=== PATIENT | male | born 1945 | race Caucasian/White ===

== ENCOUNTER 2018-07-23 12:35 | Day surgery (SDC) | payer MEDICARE, OTHER ==
[~2018-07-23] VITALS: Ht 177.8 cm; Wt 113.6 kg
[2018-07-23] VITALS (135 sets, daily range): BP systolic 126–160; BP diastolic 83–97; PULSE 51–67; TEMP 97.7–98.5; O2SAT 93–98
[~2018-07-23 12:35] MED LIST: ASPI325T6 PO; ASPIRIN 32325 MG/TAB PO; ASPIRIN 81M81 MG/TA2 PO; CELEBREX 200MG200 MG PO; COSAMIN DS 4001 TAB PO; CRESTOR20 MG PO; DIOVAN/HCT 12.51 TAB PO; GARLIC1250 MG PO; HCTZ12.5TAB PO; LIPITOR 10MG10 MG PO; NIASPAN 500MG500 MG PO; NORVASC 10MG10 MG PO; PEPCID 20MG TAB20 MG PO; PLAVIX 75MG TAB75 MG PO; ROXICODONE 55 MG/TAB PO; SUPER EPA 2002000 MG PO; TOPROL XL 25MG25 MG PO; TRICOR145 MG PO; VIT-GEN1 TAB PO; ZESTRIL 5MG5 MG PO; ZYLOPRIM 300MG300 MG PO
[2018-07-23] MEDS ORDERED: PRINIVIL10 MG PO (12:52)
[2018-07-23] MEDS ORDERED: ASPIRIN E.C. 8181 MG PO (12:53)
[2018-07-23] MEDS ORDERED: COSAMIN DS 4001 TAB PO (12:56)
[2018-07-23] MEDS ORDERED: RANEXA 500MG T500 MG PO (12:56)
[2018-07-23] MEDS ORDERED: EPA FISH OIL1 SGL (12:57)
[2018-07-23 13:15] LABS: HEMATOCRIT 41.8 % (42.0-52.0); HEMOGLOBIN 13.6 g/dl (13.5-18.0); MEAN CELL VOLUME 84 fl (80.0-100.0); MEAN CORPUSCULAR HEMOGLOBIN 27 pg (27.0-31.0); MEAN CORPUSCULAR HGB CONC 33 g/dl (33.0-37.0); MEAN PLATELET VOLUME 10.4 fl (7.4-10.4); PLATELET COUNT 154 K/mm3 (130-400); RED BLOOD COUNT 4.96 M/mm3 (4.20-5.60); REDCELL DISTRIBUTION WIDTH-CV 13.6 % (11.5-14.5)
[2018-07-23 13:21] LABS: INR 1.2 (0.8-3.0); PROTHROMBIN TIME 13.2 SECONDS (9.7-12.8)
[2018-07-23] MEDS ORDERED: TYLENOL 500MG500 MG PO (13:25)
[2018-07-23 13:30] LABS: CALCIUM 9.4 mg/dL (8.4-10.2); CREATININE, serum 1.61 (0.66-1.25); POTASSIUM 3.8 mmol/L (3.4-5.0)
--- NOTE | 2018-07-23 16:59 | NUR ---
ALL MEDICATIONS GIVEN VORB WITH MD. SEE MERGE FOR ALL MEDICATION ADMIN TIMES. SEE MERGE FOR ALL RASS ASSESSMENTS DURING AND POST PROCEDURE.
--- NOTE | 2018-07-23 19:10 | NUR ---
Bedside report provided to VIDA Chung. Patient remains flat with right femoral site with scant drainage noted. Site remains soft and free of hematoma. IV gtt rates verified. Care completed.
--- NOTE | 2018-07-23 20:30 | NUR ---
Cath site dressing noted to be saturated; site is soft and non-tender to touch. Distal pulses +2. Manual pressure held for 10 min. Continued to have mild oozing. Dressing changed and sand bag placed on site.
--- NOTE | 2018-07-23 21:10 | NUR ---
morgue technician at bedside to assess groin site due to bleeding. Tech placed a topical D-stat at that time and re-dressed groin site. Will continue to monitor.
--- NOTE | 2018-07-23 23:20 | NUR ---
Placed femstop at this time. Groin site soft and tender only with deep palpation. Scan drainage on dressing.
[2018-07-24] VITALS (461 sets, daily range): BP systolic 151–168; BP diastolic 85–100; PULSE 55–60; TEMP 98; O2SAT 93–99
--- NOTE | 2018-07-24 01:39 | NUR ---
Patient reported burning sensation at femstop site. Dressing saturated at this time. Groin site still soft with no bruising. Distal pulses plus 2. Removed fem stop to change dressing and assess site. Patient reported burning sensation immediately went away after deflating Femstop. Removed saturated dressing and no new bleeding noted. Placed new dressing and did not replace Femstop at this time. Left Femstop around hips in case site begins to re-bleed.
[2018-07-24 06:06] LABS: BASO % 0.3 % (0.0-2.0); EOS # 0.2 (0.0-0.7); EOS % 1.8 % (0-4.0); GRAN # 6.3 (1.4-6.5); GRAN % 72.5 % (42.2-75.2); HEMATOCRIT 40.6 % (42.0-52.0); LYMPH # 1.5 (1.2-3.4); LYMPH % 17.8 % (20.0-51.0); MEAN CELL VOLUME 84 fl (80.0-100.0); MEAN CORPUSCULAR HEMOGLOBIN 27 pg (27.0-31.0); MEAN CORPUSCULAR HGB CONC 32 g/dl (33.0-37.0); MEAN PLATELET VOLUME 10.7 fl (7.4-10.4); MONO # 0.6 (0.1-0.6); PLATELET COUNT 147 K/mm3 (130-400); RED BLOOD COUNT 4.82 M/mm3 (4.20-5.60); REDCELL DISTRIBUTION WIDTH-CV 13.6 % (11.5-14.5)
[2018-07-24 06:31] LABS: CALCIUM 8.9 mg/dL (8.4-10.2); CREATININE, serum 1.39 (0.66-1.25); POTASSIUM 3.8 mmol/L (3.4-5.0)
--- NOTE | 2018-07-24 07:15 | NUR ---
Bedside report recieved from Juliet MCPHERSON. Right groin dressing and site assessed with off going RN. Dressing CDI, site soft and without hematoma. Patient resting in bed, requests light off. Call light at side
--- NOTE | 2018-07-24 07:15 | NUR ---
Bedside report given to VIDA Menard. Patient care transfered.
--- NOTE | 2018-07-24 12:51 | NUR ---
First visit from the produce department manager. No needs right now.
--- NOTE | 2018-07-24 13:24 | NUR ---
SW met with patient and about discharge planning. Patient lives independently at home with his and plans to return there upon discharge. Patient's PCP is Dr Huddleston and he obtains prescriptions on [facility] [place]. Patient does not use any DME or home health services. Patient does have a DPOA and a copy is in the EMR. SW does not anticipate any discharge needs.
--- NOTE | 2018-07-24 15:00 | NUR ---
Discharge information and education reviewed with patient and spouse. Both state understanding. No new medications or medication changes. Post op appointment made for patient. 1510 Discharged to POV via wheelchair with driving.
== END 2018-07-24 15:10 | disposition home or self-care (01) ==
LOC: COL.CAR 12:35 → ICU 18:37 → COL.CAR 07-24 15:10
PROVIDERS: Internal Medicine Interventional Cardiology
DX: I25.10 Atherosclerotic heart disease of native coronary artery without angina pectoris (principal); R94.39 Abnormal result of other cardiovascular function study; E78.5 Hyperlipidemia, unspecified; E66.9 Obesity, unspecified; I10 Essential (primary) hypertension; Z95.5 Presence of coronary angioplasty implant and graft; Z79.82 Long term (current) use of aspirin; Z79.02 Long term (current) use of antithrombotics/antiplatelets; Z82.49 Family history of ischemic heart disease and other diseases of the circulatory system
CPT/HCPCS: OP; C9600; J0153; J0583; J1644; J2250; J3010; Q9967

== ENCOUNTER 2018-11-10 14:34 | Inpatient (IN) | payer MEDICARE, OTHER ==
[~2018-11-10] VITALS: Ht 177.8 cm; Wt 103.3 kg
[~2018-11-10 14:34] MED LIST changes: +ASPIRIN E.C. 8181 MG PO; +EPA FISH OIL1 SGL; +PRINIVIL10 MG PO; +RANEXA 500MG T500 MG PO; +TYLENOL 500MG500 MG PO
[2018-12-23] VITALS (10 sets, daily range): BP systolic 106–140; BP diastolic 60–81; PULSE 54–77; TEMP 97.6–98.1
--- NOTE | 2018-12-23 09:29 | NUR ---
SW attempted to meet with the patient, the patient was in surgery and there was no family present. SW will attempt at a later time.
--- NOTE | 2018-12-23 14:27 | NUR ---
PT TO ROOM 332 PER BED WITH CASSANDRA DUNBAR RN REPORTING @ 1342. PT IS A/O LUNGS CLEAR, BOWEL SOUNDS PRESENT. DRESSING TO RIGHT HIP CDI. TEDS AND SCDS PLACED BILATERALLY. AT BEDSIDE. PT DENIES PAIN OR MOTOR CONTROL OF LOWER EXRT.
--- NOTE | 2018-12-23 14:30 | NUR ---
PT RESSTING IN BED DENIES PAIN OR NEEDS.
--- NOTE | 2018-12-23 20:30 | NUR ---
mPt. sitting up in bed watching TV at this time. Pt. is A&Ox3, assessment complete. Dressing to rt. hip cdi. Pt. reported pain at a 7 on pain scale, will give pain meds per orders. Pt. denies further needs, call light within reach.
[2018-12-24 00:40] VITALS: BP 134/90; PULSE 88; TEMP 98.6
[2018-12-24 05:08] VITALS: BP 142/80; PULSE 78; TEMP 98.4
[2018-12-24 07:06] LABS: HEMOGLOBIN 11.3 g/dl (13.5-18.0)
[2018-12-24 07:07] LABS: HEMATOCRIT 34.5 % (42.0-52.0)
--- NOTE | 2018-12-24 08:00 | NUR ---
PATIENT IS A&O. VSS. RATES PAIN IN RLE AT 4/10. PATIENT GIVEN PAIN MEDS BEFORE SHIFT CHANGE. RIGHT HIP DRESSING IS CD&I WITH OCCLUSIVE TAPE AND ICE PACK INPLACE. TEDS & SCD'S TO BLE. POSITIVE PEDAL PULSES. PATIENT EAT/DRINK/VOIDING SUFFIENT AMOUNTS. NO C/O N/V. AM MEDS GIVEN. HEAD TO TOE ASSESSMENT COMPLETE.
[2018-12-24 08:53] VITALS: BP 140/70; PULSE 75; TEMP 98.3
--- NOTE | 2018-12-24 11:44 | NUR ---
MOBILE UI DEVELOPER student met with the patient and the patient's , Kalee to discuss a discharge plan. The patient lives in [place] with Kalee. The patient has a walker and reports independence with ADLs. The patient's PCP is Dr. Huddleston and patient receives medications from [facility] with no difficulties. The patient has advanced directives in the EMR. Upon discharge the patient plans to return home with Kalee providing transport. The patient will have outpatient therapy at [facility]. There are no additional needs at this time.
[2018-12-24 12:34] VITALS: BP 129/78; PULSE 70; TEMP 98.6
--- NOTE | 2018-12-24 12:41 | NUR ---
Initial visit; Patient and his thanked Warper Creeler for stopping by to wish patient a rapid and thorough recovery. Both patient and his mentioned the friendliness, helpfulness and professionalism of our hospital staff. Warper Creeler thanked them for letting us know of their positive experience with us.
[2018-12-24 16:23] VITALS: BP 126/61; PULSE 70; TEMP 99.1
[2018-12-24 20:51] VITALS: BP 106/62; PULSE 82; TEMP 98.3
--- NOTE | 2018-12-24 21:00 | NUR ---
Pt. sitting up in bed at this time. Pt. is A&XO3, assessment complete. INT to lt. hand patent. Pt. reports pain at a 3 on pain scale. Dressing to Rt. hip CDI. Devi cath to DD, clear yellow urine noted. Pt. denies further needs at this time. Call light within reach.
[2018-12-25 00:03] VITALS: BP 112/54; PULSE 73; TEMP 98.2
[2018-12-25 03:42] VITALS: BP 115/65; PULSE 73; TEMP 98.7
--- NOTE | 2018-12-25 06:20 | NUR ---
Pt. slept well through the night. Pt. remains A&OX3. Devi catheter discontinued this am. Pt. tolerated well. Pt. denies pain or other needs, call light within reach.
[2018-12-25] MEDS ORDERED: ASPI325T6 PO (06:37)
[2018-12-25] MEDS ORDERED: CELEBREX 200MG200 MG PO (06:38)
[2018-12-25] MEDS ORDERED: NORCO 325 MG-7.1 TAB PO (06:38)
[2018-12-25] MEDS ORDERED: COLACE 100100 MG/CAP PO (06:40)
[2018-12-25] MEDS ORDERED: ULTRAM 50MG TAB50 MG PO (06:40)
[2018-12-25 06:46] LABS: HEMATOCRIT 34.8 % (42.0-52.0)
[2018-12-25 07:56] VITALS: BP 122/62; PULSE 79; TEMP 98.6
--- NOTE | 2018-12-25 08:00 | NUR ---
PATIENT IS ORIENTED BUT A LITTLE TIRED THIS AM. PATIENT REPORTS HE SLEPT BETTER LAST NIGHT. VSS. RATES PAIN IN RLE AT 4/10. PATIENT REQUESTING SOMETHING FOR PAIN BEFORE AM THERAPY. GAVE PRN PAIN MEDS WITH AM MEDS. RTH DRESSING CHANGED TO AQUACEL. TEDS TO BLE. POSITIVE PEDAL PULSES TO BLE. DC'D IV FOR PENDING DISCHARGE. PATIENT PLANNING ON DISCHARGE HOME LATER TODAY.
== END 2018-12-25 11:25 | disposition home or self-care (01) | DRG 470 ==
LOC: JCC 12-23 06:50
PROVIDERS: ADMIT Orthopaedic Surgery
PROC: 0SR90JA Replacement of Right Hip Joint with Synthetic Substitute, Uncemented, Open Approach (ICD-10-PCS; principal; 2018-12-23 09:30)
DX: M16.11 Unilateral primary osteoarthritis, right hip (principal); Z96.642 Presence of left artificial hip joint; I10 Essential (primary) hypertension; M10.9 Gout, unspecified; E78.00 Pure hypercholesterolemia, unspecified; I25.2 Old myocardial infarction
CPT/HCPCS: A4314; A9284; C1713; C1776; J0690; J2250; J2270; J2704; J7120

== ENCOUNTER → 2018-12-18 | Outpatient (CLI) | payer MEDICARE, OTHER | LOC: COL.LAB 10:52 | DX: M16.11 Unilateral primary osteoarthritis, right hip (principal) ==

== ENCOUNTER 2019-02-26 10:24 | Day surgery (SDC) | payer MEDICARE, OTHER ==
[~2019-02-26] VITALS: Ht 177.8 cm; Wt 106.0 kg
[~2019-02-26 10:24] MED LIST changes: +COLACE 100100 MG/CAP PO; +NORCO 325 MG-7.1 TAB PO; +PACERONE400 MG PO; +ULTRAM 50MG TAB50 MG PO
[2019-02-26 10:59] VITALS: BP 164/95; PULSE 67; TEMP 98.1
[2019-02-26] MEDS ORDERED: ASPIRIN 81M81 MG/TA2 PO (11:02)
[2019-02-26] MEDS ORDERED: ELIQUIS 5MG PO (11:06)
[2019-02-26 11:10] LABS: POTASSIUM 4.2 mmol/L (3.4-5.0)
[2019-02-26 11:11] LABS: INR 1.8 (0.8-3.0); PROTHROMBIN TIME 21.8 SECONDS (9.7-12.8)
--- NOTE | 2019-02-26 11:12 | NUR ---
20G IV INSERTED TO RIGHT OUTER AC. LABS DRAWN AND SENT TO LAB. PATIENCE CALLED TO OBTAIN EKG.
[2019-02-26 11:43] LABS: THYROID STIMULATING HORMONE 1.94 uIU/mL (0.465-4.680)
--- NOTE | 2019-02-26 12:16 | NUR ---
VERBAL RECEIVED FROM DR THAPA THAT PROCEDURE IS GOING TO BE CANCELED D/T PATIENT BEING IN SR AT THIS TIME. NOTIFIED PATIENT. DR THAPA TO SPEAK WITH PATIENT ONCE PROVIDER ARRIVES AND THEN WILL REMOVE IV AND ALLOW PT TO LEAVE.
--- NOTE | 2019-02-26 13:24 | NUR ---
CALLED DR THAPA TO REMIND HIM TO COME SPEAK WITH PATIENT REGARDING CANCELLING PROCEDURE IN ORDER FOR ME TO BE ABLE TO DISCHARGE PATIENT.
--- NOTE | 2019-02-26 13:27 | NUR ---
DR THAPA PRESENT TO TALK WITH PATIENT.
--- NOTE | 2019-02-26 13:38 | NUR ---
PT'S PROCEDURE CANCELLED PER DR THAPA. PROVIDER WOULD LIKE PATIENT SET UP WITH 24 HR HOLTER MONITOR AND FOR HIM TO START AMIODARONE. RT CALLED TO SET UP HOLTER MONITOR.
--- NOTE | 2019-02-26 14:17 | NUR ---
AWAITING DISCHARGE ORDERS AND PAPERWORK FROM DR THAPA IN ORDER TO DISCHARGE PATIENT. PATIENT UPDATED ON STATUS.
--- NOTE | 2019-02-26 14:31 | NUR ---
HERBERT ORDERED FOR PATIENT. STILL WAITING ON ORDERS FROM DR THAPA AND RT TO FIT PATIENT FOR HOLTER MONITOR.
--- NOTE | 2019-02-26 15:05 | NUR ---
DISCHARGE INSTRUCTIONS REVIEWED WITH PATIENT. DR THAPA STATED THAT HIS OFFICE IS CALLING IN THE PATIENT'S SCRIPT FOR AMIODRONE 400 MG BID TO START ON FRIDAY. PATIENT SET UP WITH HOLTER MONITOR BY RT FOR 24 HOURS. IV DISCONTINUED. PATIENT AMBULATED WITHOUT DIFFICULTY TO EXIT WITH .
== END 2019-02-26 15:00 | disposition home or self-care (01) ==
LOC: COL.CAR 10:24
PROVIDERS: Internal Medicine Interventional Cardiology
DX: I48.0 Paroxysmal atrial fibrillation (principal); I10 Essential (primary) hypertension; I25.10 Atherosclerotic heart disease of native coronary artery without angina pectoris; E78.5 Hyperlipidemia, unspecified; E66.9 Obesity, unspecified; I25.2 Old myocardial infarction; Z79.82 Long term (current) use of aspirin; Z79.02 Long term (current) use of antithrombotics/antiplatelets; Z96.642 Presence of left artificial hip joint; Z82.49 Family history of ischemic heart disease and other diseases of the circulatory system

== ENCOUNTER → 2023-04-24 | Outpatient (REF) | payer MEDICARE, OTHER ==
[~2023-04-24] MED LIST changes: +ELIQUIS 5MG PO
[2023-04-24 15:55] LABS: BASO % 0.4 % (0.0-2.0); CALCIUM 9.6 mg/dL (8.4-10.2); CREATININE, serum 1.02 mg/dL (0.72-1.25); EOS # 0.1 K/mm3 (0.0-0.7); EOS % 1.8 % (0.0-4.0); GRAN # 5.3 K/mm3 (1.4-6.5); GRAN % 72.4 % (42.2-75.2); HEMATOCRIT 48.2 % (42.0-52.0); HEMOGLOBIN 15.3 g/dl (13.5-18.0); LYMPH # 1.2 K/mm3 (1.2-3.4); LYMPH % 16.1 % (20.0-51.0); MEAN CELL VOLUME 84 fl (80.0-100.0); MEAN CORPUSCULAR HEMOGLOBIN 27 pg (27-31); MEAN CORPUSCULAR HGB CONC 32 g/dl (33.0-37.0); MEAN PLATELET VOLUME 11.2 fl (7.4-10.4); MONO # 0.7 K/mm3 (0.1-0.6); PLATELET COUNT 105 K/mm3 (130-400); POTASSIUM 4.1 mmol/L (3.5-4.5); RED BLOOD COUNT 5.73 M/mm3 (4.20-5.60); REDCELL DISTRIBUTION WIDTH-CV 14.8 % (11.5-14.5); TROPONIN-I 0.021 ng/mL (0.00-0.033); TSH w REFLEX 1.488 uIU/mL (0.350-4.940)
== END ==
LOC: ZCOL.LAB 14:45
PROVIDERS: Nurse Practitioner
DX: R42 Dizziness and giddiness (principal)